=== PATIENT | male | born 1970 | race Caucasian/White ===

== ENCOUNTER 2019-03-10 16:50 | Inpatient (IN) ==
[2019-03-10] MEDS ORDERED: ZOFRAN IV PRN (18:39)
[2019-03-10] MEDS ORDERED: DUONEB (A & A) INH PRN (18:41)
[2019-03-10 18:42] LABS: ALLEN TEST YES; BE -5.4 mmoll (-3.0-3.0); BLOOD TYPE ARTERIAL; HCO3-(ACT) 20.7 mmoll (20.0-26.0); O2(CT) 18.5 mL/dL (15.0-23.0); O2HB 96.2 % (95.0-99.0); PCO2(98.6) 47 mmHg (35-45); PO2(98.6) 135 mmHg (60-100); SAMPLE BLOOD; SAO2 98.9 % (95.0-100.0); THB 13.5 g/dL (11.5-17.4); pH(98.6) 7.27 (7.35-7.45)
[2019-03-10] MEDS ORDERED: QUELICIN ONE (18:42)
[2019-03-10] MEDS ORDERED: DIPRIVAN 1% 1,000 MG/100 ML BOTTLE ONE (18:42)
[2019-03-10] MEDS ORDERED: VERSED ONE ×2 (18:42→19:02)
[2019-03-10 18:44] LABS: MODALITY NRB
[2019-03-10] MEDS ORDERED: SODIUM CHLORIDE 0.9% INJ SCH (18:45)
[2019-03-10] MEDS ORDERED: NS 1,000 ML IV SCH ×2 (18:45→18:52)
[2019-03-10] MEDS ORDERED: VANCOMYCIN IV PER PHARMACY MISC SCH (18:45)
[2019-03-10] MEDS ORDERED: PEPCID IV SCH (18:45)
[2019-03-10] MEDS ORDERED: LEVOPHED 8 MG in D5 1/2 NS 250 ML IV SCH (18:45)
[2019-03-10] MEDS ORDERED: ZOSYN 3.375 GM in NS 50 ML IV SCH (18:45)
[2019-03-10] MEDS ORDERED: ATIVAN ONE (19:12)
[2019-03-10] MEDS ORDERED: QUELICIN IV ONE (19:19)
[2019-03-10] MEDS ORDERED: VERSED IV ONE (19:19)
[2019-03-10] MEDS ORDERED: TYLENOL PR PRN (19:26)
[2019-03-10] MEDS: DUONEB (A & A) INH SCH ×2 (19:30→23:30)
--- NOTE | 2019-03-10 19:31 | HISTORY AND PHYSICAL ---
CHIEF COMPLAINT: Pneumonia, respiratory failure. HISTORY OF PRESENT ILLNESS: This is a 48-year-old gentleman who presented to ICU 15 in transfer from [facility]. On arrival to the ER, the patient was obtunded. He was in respiratory distress. He was initially on BiPAP. He was on BiPAP en route, placed on a non- rebreather. The patient is unable to answer questions at the time of my exam. No family member is present. We are unsure of the past medical history. Dr. Foster did give report stating that the patient had a large left-sided pneumonia. He had been ruled in for sepsis and given fluid boluses as well as antibiotics, although at this time I am unsure what antibiotics he was given. PAST MEDICAL HISTORY: Unknown. PAST SURGICAL HISTORY: Unknown. ALLERGIES: Unknown. HOME MEDICATIONS: Unknown. REVIEW OF SYSTEMS: Unable to obtain. PHYSICAL EXAMINATION: GENERAL: This is a 48-year-old gentleman who is sitting up lying in the bed at present with intubation pending in ICU. VITAL SIGNS: Blood pressure is 99/66, with a heart rate of 110, respirations are 34-36, temperature is 100.9 temporal with O2 sats that initially were 96% on BiPAP. They did deteriorate with non-rebreather. HEENT: Head is normocephalic, atraumatic. Mucous membranes are moist. NECK: Supple. Trachea midline. CARDIOVASCULAR: He is tachycardic. S1 and S2 appreciated. He has clubbing noted to nail beds and bilateral hands. PULMONARY: He has wheezes, rhonchi throughout. Chest rises and falls symmetric with respiration. GASTROINTESTINAL: Soft, nondistended, with bowel sounds in all 4 quadrants. SKIN: Warm and dry. ASSESSMENT AND PLAN: 1. Sepsis. 2. Reported left-sided pneumonia. 3. Respiratory failure. 4. Hypotension. PLAN: The patient will be intubated. We will consult Dr. Farooq for pulmonary management. We will obtain blood cultures, a sputum culture. NG tube and Cabrales catheter will be placed. We will check a urine culture. We will give antibiotic coverage of vancomycin dosed per pharmacy and Zosyn. We will attempt to get in touch with the patient's family members to get any patient history. DuoNeb q.4 hours and q.2 hours p.r.n. and steroids to taper. Diprivan drip. Protonix for PPI. SCDs for DVT prophylaxis as we are unsure of his history. ABG after intubation t be called to pulmonary Post intubation chest x-ray. Repeat a CBC, CMP and magnesium in the morning, along with daily gases CXR in am TSH. We will use restraints as needed for patient's safety. Further treatments pending hospital course. Of note, Dr. Mead was at the bedside with the patient since arrival. Dictated by DANIEL Johnson for Vandana Mead MD cc: DANIEL Johnson MD [facility]
[2019-03-10] MEDS: DIPRIVAN 1% 1,000 MG/100 ML BOTTLE IV SCH ×2 (19:32→23:25)
[2019-03-10] MEDS: SOLU-MEDROL IV SCH (20:31)
[2019-03-10] MEDS: PROTONIX IV SCH (20:32)
[2019-03-10] MEDS: MAXIPIME 1 GM in NS 50 ML IV SCH (20:32)
[2019-03-10] MEDS: ZYVOX 600 MG/D5W 600 MG/300 ML IVPB IV SCH (20:33)
[2019-03-10] MEDS: SODIUM CHLORIDE 0.9% INJ SCH (20:54)
[2019-03-10 21:13] LABS: UR AMPHETAMINES QUAL PRESUMPTIVE POSITIVE (NONE DETECT); UR BARBITUATES QUAL NONE DETECTED (NONE DETECT); UR BENZODIAZEPIN QUAL PRESUMPTIVE POSITIVE (NONE DETECT); UR CANNABINOIDS QUAL NONE DETECTED (NONE DETECT); UR COCAINE QUAL NONE DETECTED (NONE DETECT); UR METHADONE QUAL NONE DETECTED (NONE DETECT); UR OPIATES QUAL NONE DETECTED (NONE DETECT); UR OXYCODONE QUAL NONE DETECTED (NONE DETECT); UR PCP QUAL NONE DETECTED (NONE DETECT)
[2019-03-10 21:22] LABS: BASO# 0.01 X1000 (0.0-0.2); BASO% 0.2 % (0.0-0.8); EOS# 0.03 X1000 (0.0-0.7); EOS% 0.5 % (0.0-10.0); HEMATOCRIT 42.3 % (42.0-52.0); HEMOGLOBIN 14.4 g/dL (14.0-18.0); LYMPH% 23.9 % (20.5-51.1); MCH 29.9 PG (27-31); MCV 87.9 FL (81-99); MONO# 0.18 X1000 (0.11-0.59); MONO% 3.1 % (1.7-9.3); NEUT# 4.25 X1000 (1.4-6.5); NEUT% 72.3 % (42.2-75.2); PLT 190 X1000 (130-400); RBC 4.81 XMIL (4.7-6.1); RDW 13.8 % (11.5-14.5); WBC 5.87 X1000 (4.8-10.8)
[2019-03-10 21:27] LABS: INR 1.27; PROTIME 16.9 Seconds (11.0-16.0)
[2019-03-10] MEDS: NS 1,000 ML IV SCH (21:30)
[2019-03-10 21:48] LABS: AGAP 12; ALB/GLOB RATIO 1.1; ALBUMIN 2.9 g/dL (3.5-5.0); ALKALINE PHOSPHATASE 50 U/L (32-122); BUN 23 mg/dL (8-22); CALCIUM 7.9 mg/dL (8.8-10.2); CHLORIDE 103 mmol/L (98-107); COSMO 272; CREATININE 0.9 mg/dL (0.7-1.2); ESTIMATED GFR > 60; GLUCOSE 106 mg/dL (70-104); GOT 47 U/L (10-34); GPT 24 U/L (10-44); MAGNESIUM 1.3 mg/dL (1.5-2.7); PHOSPHORUS 2.8 mg/dL (2.7-4.5); POTASSIUM 4.8 mmol/L (3.5-5.1); SODIUM 134 mmol/L (136-145); TCO2 19 mmol/L (25-35); TOTAL BILIRUBIN 0.71 mg/dL (0.20-1.00); TOTAL PROTEIN 5.5 g/dL (6.3-8.3)
[2019-03-10 21:49] LABS: BANDS 44 % (0-1); LYMPHS 27 % (21-51); SEGS 5 % (42-75)
[2019-03-10] MEDS ORDERED: MAGNESIUM SULFATE 2 GM/S.W.I. 2 GM/50 ML IVPB IV ONE (21:50)
--- NOTE | 2019-03-10 21:50 | Diag Imaging Result Doc PS360 ---
EXAM: CHEST-PORTABLE INDICATION: ng placement TECHNIQUE: One view COMPARISON: 03/10/2019 FINDINGS: There has been interval placement of NG tube. The tip projects well below the diaphragm and is assumed to be in the lumen of the stomach in expected position. Otherwise, the chest is stable as compared to the recent prior study. IMPRESSION: Interval placement of NG tube in expected position. Electronically signed by Dayne Bush 03/10/2019 9:48 PM
--- NOTE | 2019-03-10 21:59 | Diag Imaging Result Doc PS360 ---
EXAM: CHEST-PORTABLE INDICATION: intubation TECHNIQUE: One view COMPARISON: 01/01/2019 FINDINGS: There is a newly placed ET tube with the tip projecting over the trachea and above the rinku at about the T3 level. There is a very dense consolidation involving the mid and lower lung zone on the left foot complete opacification except for the left lung apex. The right lung is clear. There may be a left pleural fluid collection. The cardiac silhouette is partially obscured by the dense consolidation. The visualized portion is unremarkable. IMPRESSION: 1.Very dense airspace consolidation on the left as described. 2.Interval placement of ET tube as described. Electronically signed by Dayne Bush 03/10/2019 9:56 PM
[2019-03-10 22:02] LABS: ALLEN TEST YES; BE -5.2 mmoll (-3.0-3.0); BLOOD TYPE ARTERIAL; HCO3-(ACT) 20.8 mmoll (20.0-26.0); METHB 1.2 % (0.0-1.5); O2(CT) 18.4 mL/dL (15.0-23.0); O2HB 95.6 % (95.0-99.0); PCO2(98.6) 32 mmHg (35-45); PO2(98.6) 92 mmHg (60-100); SAMPLE BLOOD; SRATE 18 BPM; THB 13.6 g/dL (11.5-17.4); TVOL 500 mL; pH(98.6) 7.38 (7.35-7.45)
[2019-03-10 22:03] LABS: MODALITY VENTILATOR
[2019-03-10] MEDS: HEPARIN SUBQ SCH (22:30)
[2019-03-10 22:34] LABS: CK INDEX 1.6 (0.0-2.5); CK-MB 17.9 ng/mL (0.0-5.0)
[2019-03-11] MEDS: SOLU-MEDROL IV SCH ×3 (02:16→17:00)
[2019-03-11 04:26] LABS: BASO# 0.01 X1000 (0.0-0.2); BASO% 0.1 % (0.0-0.8); EOS# 0.07 X1000 (0.0-0.7); EOS% 0.8 % (0.0-10.0); HEMATOCRIT 41.9 % (42.0-52.0); HEMOGLOBIN 14.1 g/dL (14.0-18.0); IMM GRAN# 0.18 X1000 (0.0-0.04); IMM GRAN% 2.2 % (0.0-0.5); LYMPH# 0.45 X1000 (1.2-3.4); LYMPH% 5.5 % (20.5-51.1); MCH 29.3 PG (27-31); MCHC 33.7 g/dL (33-37); MCV 86.9 FL (81-99); MONO# 0.21 X1000 (0.11-0.59); MONO% 2.5 % (1.7-9.3); MPV 11.2 FL (7.4-10.4); NEUT# 7.33 X1000 (1.4-6.5); NEUT% 88.9 % (42.2-75.2); PLT 180 X1000 (130-400); RBC 4.82 XMIL (4.7-6.1); RDW 13.9 % (11.5-14.5); WBC 8.25 X1000 (4.8-10.8)
[2019-03-11 04:38] LABS: ALLEN TEST YES; BE -2.2 mmoll (-3.0-3.0); BLOOD TYPE ARTERIAL; HCO3-(ACT) 23.2 mmoll (20.0-26.0); METHB 1.1 % (0.0-1.5); O2(CT) 19.4 mL/dL (15.0-23.0); O2HB 97.2 % (95.0-99.0); PCO2(98.6) 32 mmHg (35-45); PO2(98.6) 190 mmHg (60-100); SAMPLE BLOOD; SAO2 99.1 % (95.0-100.0); SRATE 18 BPM; THB 13.9 g/dL (11.5-17.4); TVOL 500 mL; pH(98.6) 7.43 (7.35-7.45)
[2019-03-11 04:40] LABS: MODALITY VENTILATOR
[2019-03-11 04:43] LABS: AGAP 12; ALBUMIN 2.8 g/dL (3.5-5.0); ALKALINE PHOSPHATASE 46 U/L (32-122); BUN 19 mg/dL (8-22); CHLORIDE 104 mmol/L (98-107); COSMO 274; CREATININE 0.9 mg/dL (0.7-1.2); ESTIMATED GFR > 60; GLUCOSE 100 mg/dL (70-104); GOT 42 U/L (10-34); GPT 23 U/L (10-44); POTASSIUM 4.4 mmol/L (3.5-5.1); SODIUM 136 mmol/L (136-145); TCO2 20 mmol/L (25-35); TOTAL BILIRUBIN 0.69 mg/dL (0.20-1.00); TOTAL PROTEIN 5.6 g/dL (6.3-8.3)
[2019-03-11 05:00] LABS: CK INDEX 2.4 (0.0-2.5); CK-MB 13.83 ng/mL (0.0-5.0)
[2019-03-11] MEDS: DIPRIVAN 1% 1,000 MG/100 ML BOTTLE IV SCH ×4 (05:21→21:10)
[2019-03-11] MEDS: ZYVOX 600 MG/D5W 600 MG/300 ML IVPB IV SCH ×2 (06:30→20:00)
[2019-03-11] MEDS: MAXIPIME 1 GM in NS 50 ML IV SCH ×2 (06:30→20:00)
[2019-03-11 06:38] LABS: URINE SOURCE CATH
[2019-03-11 06:41] LABS: BILIRUBIN URINE NEGATIVE (NEGATIVE); BLOOD URINE TRACE (NEGATIVE); COLOR ORANGE; GLUCOSE URINE NEGATIVE (NEGATIVE); KETONE URINE NEGATIVE (NEGATIVE); LEUKOCYTES URINE NEGATIVE (NEGATIVE); NITRITE URINE NEGATIVE (NEGATIVE); PROTEIN URINE 100 mg/dL (NEGATIVE); SP GRAVITY URINE 1.021; TURBIDITY URINE TURBID (CLEAR); UROBILINOGEN URINE NORMAL (NORMAL)
[2019-03-11 06:42] LABS: UR EPITHELIAL CELLS <10 /HPF (<10); URINE BACTERIA NEGATIVE /HPF; URINE RBC <10 /HPF (<10); URINE WBC <10 /HPF (<10)
--- NOTE | 2019-03-11 07:29 | EKG Report ---
Test Performed on : 03/11/2019 06:54:42 AM Test Reason : resp failure Blood Pressure : / mmHG Vent. Rate : 097 BPM Atrial Rate : 097 BPM P-R Int : 128 ms QRS Dur : 092 ms QT Int : 344 ms P-R-T Axes : 071 037 073 degrees QTc Int : 436 ms Normal sinus rhythm. Normal ECG When compared with ECG of 01-JAN-2019 21:02, No significant change was found Confirmed by Kay IRWIN, Boris Perla ([id number]) on 03/11/2019 9:45:21 AM
--- NOTE | 2019-03-11 07:36 | Diag Imaging Result Doc PS360 ---
CHEST-PORTABLE - 03/11/2019 INDICATION: pneumonia, resp failure COMPARISON: 03/10/2019 FINDINGS: Support tubes are stable and in good position. Stable dense opacification of the left lung base most likely infiltrate and effusion. The right lung remains clear. No mediastinal shift. IMPRESSION: Severe opacification of the left lung base similar to prior. Electronically signed by Messi Gutierrez 03/11/2019 7:34 AM
[2019-03-11] MEDS: DUONEB (A & A) INH SCH ×5 (08:02→19:45)
[2019-03-11] MEDS: HEPARIN SUBQ SCH ×2 (08:14→20:00)
[2019-03-11] MEDS: NS 1,000 ML IV SCH ×2 (09:28→23:19)
--- NOTE | 2019-03-11 12:06 | INFECTIOUS DISEASE CONSULT REP ---
DATE: 03/11/2019 CONCLUSION: Unfortunately we do not have much information about the patient. He was seen in [facility] Emergency Room. There he was obtunded and in respiratory distress. Also, he had been in the ER before and complained of abdominal pain. PAST MEDICAL HISTORY, PAST SURGICAL HISTORY, ALLERGIES HOME MEDICATIONS: Are unknown and review of systems was unable to be done. I called the [facility] in the microbiology lab and they said that the patient had blood cultures and thus far they were negative. RECOMMENDATIONS: I agree with treating the patient with Zyvox and cefepime. I have ordered a CT scan of the thorax, abdomen and pelvis. DISCUSSION: As mentioned above. We have very little information on this person. Studies that have been done here show a CBC with a white count of 8250, hemoglobin 14.1, and platelet count 180,000. Liver function studies are normal. Creatinine 0.9. GFR is greater than 60. Blood gases show a pH of 7.43, a PO2 of 190, and a pCO2 of 32. Drug screen was positive for amphetamines and benzodiazepines. Blood, urine and sputum cultures are pending. Chest x-ray showed a left lung opacity. PHYSICAL EXAMINATION: Vital signs: Earlier the patient's temperature was 101 degrees, now it is 100. Pulse is 102. Respirations 21. Blood pressure 99/67. The patient weighs 133 pounds. General: This is an ill-appearing, middle-aged male. He is intubated and sedated. Head/eyes/ears/nose/throat: Patient has an orotracheal tube in place. No drainage noted from the nose or ears. Neck: No meningismus. Lungs: There were diminished breath sounds on the left side. Right side was clear. Cardiovascular: Heart rate is regular. Abdomen: Soft. It did not appear to be tender. Neurologic: The patient is obtunded. He did respond to verbal stimuli. There was no tremor. Integument: No rash. Thank you for the consult. cc: Jacek Brown MD
[2019-03-11 12:46] LABS: CK INDEX 2.5 (0.0-2.5); CK-MB 10.7 ng/mL (0.0-5.0)
--- NOTE | 2019-03-11 14:52 | Diag Imaging Result Doc PS360 ---
EXAM: CT THORAX/ABD/PELVIS W/WO CON 03/11/2019 HISTORY: L lung opacity, abdominal pain, sepsis TECHNIQUE: This exam was performed using automated exposure control, adjustment of mA or kV according to patient size, and/or use of iterative reconstruction technique. COMMENT: There are no previous studies available for comparison. There is an endotracheal tube and an NG tube. The endotracheal tube tip is well above the rinku. The NG tube passes into the stomach. There is marked consolidation of the left lung particularly the lower lobe and lower portions of the upper lobe. There is also a left pleural effusion. There is a smaller effusion on the right with atelectasis in the posterior costophrenic sulcus. There are some patchy groundglass opacities in the right upper lobe anteriorly. The regional skeleton is intact. ABDOMEN: There is no evidence of nephrolithiasis. There is no evidence of cholelithiasis. There is a hyperdense cyst in the left kidney. There is a granuloma in the spleen. The aorta is not distended. The renal and mesenteric arteries are patent. The portal vein is patent. There is some perinephric fluid on the right of uncertain significance. There is normal contrast opacification of the kidneys. The liver is normal in appearance. The pancreas and adrenal glands are within normal limits. There is no evidence of bowel obstruction. There is some stool in the colon. Pelvis: There is no evidence of appendicitis. There is a small amount of free fluid in the rectovesical pouch. There is a Cabrales catheter in the bladder. IMPRESSION: 1. Left pneumonia with pleural effusion. 2. Right perinephric fluid collection of uncertain significance. Minimal free pelvic fluid. Electronically signed by Brice Mauro 03/11/2019 2:50 PM
--- NOTE | 2019-03-11 17:38 | PROGRESS NOTE ---
DATE: 03/11/2019 SUBJECTIVE: The patient is currently sedated on the ventilator. No acute events noted overnight. OBJECTIVE: Vital signs: Temperature 98.6 degrees, blood pressure 101/74, heart rate 103, respirations 20, O2 saturation 99% on the mechanical ventilator. Intake 1.5 L, output 1.6 L.General: This is a middle-aged male, currently sedated on the ventilator. Head normocephalic, atraumatic. Heart: S1, S2 normal. Regular rate and rhythm. Lungs: Coarse breath sounds in the left lung. Abdomen: Positive bowel sounds. Soft, nontender, nondistended. Extremities: No edema, no cyanosis. Neurologic: The patient is currently sedated on the ventilator. LABORATORY DATA: White blood cell count 8.2, hemoglobin 14, hematocrit 41, platelets 180,000. Sodium 136, potassium 4.4, chloride 104, CO2 is 20, BUN 19, creatinine 0.9, glucose 100, calcium 8, phosphorus 2.7, magnesium 2, total bilirubin 0.6, AST 42, ALT 23, alkaline phosphatase 46. CK 430. DIAGNOSTIC DATA: CT of the chest, abdomen and pelvis shows left pneumonia with pleural effusion. Right perinephric fluid collection. ASSESSMENT AND PLAN: 1. Acute hypoxemic respiratory failure. Likely secondary to pneumonia. We will continue with ventilatory support as directed by the calf skinner. Continue with antibiotics and bronchodilator therapy. 2. Left lobe pneumonia. Continue with antibiotic therapy. We will await the results of the blood and sputum culture. We will also consult with Infectious Disease. 3. Polysubstance abuse. Aware. 4. Chronic obstructive pulmonary disease. Continue with intravenous steroids, bronchodilator therapy and antibiotics. 5. Gastrointestinal prophylaxis. Continue on intravenous Protonix. 6. Deep vein thrombosis prophylaxis. Continue on heparin. cc: Vandana Mead MD
--- NOTE | 2019-03-11 18:37 | CONSULTATION ---
DATE OF CONSULTATION: 03/11/2019 REQUESTING PROVIDER: DANIEL Johnson. REASON FOR CONSULTATION: Respiratory failure. HISTORY OF PRESENT ILLNESS: This is a 48-year-old male with a medical history of COPD, ongoing tobacco abuse and liver cirrhosis. He was transferred from [facility] Room last night with left-sided pneumonia. Per the H and P, upon arrival to the ER, the patient was obtunded. He was put on BiPAP and later on a nonrebreather. He eventually required intubation after transferred to the ICU. Patient currently is still intubated and sedated. Patient's ex- is at the bedside. She reported that patient has been coughing for a while. She stated patient has not been seeing any doctor for over 10 years. Patient used an [id number] inhaler as needed. PAST MEDICAL AND SURGICAL HISTORY: Obtained from patient's ex-: 1. COPD, not followed by [facility]; taking OTC inhaler as needed 2. Ongoing tobacco abuse. 2. Liver cirrhosis stage I, diagnosed 10 years ago. SOCIAL HISTORY: Patient is and lives alone at home. Patient's ex- lives 5 minutes away from patient's house. They have 3 children and 8 grandchildren. He smokes 1 pack per day for a long time. He used to drink and has been stopped drinking for a while. He has no history of illicit drug use. FAMILY HISTORY: Mother has cancer and diabetes. Father has congestive heart failure. ALLERGIES: No known drug allergies. REVIEW OF SYSTEMS: Unable to be obtained. PHYSICAL EXAMINATION: Vital Signs: Temperature 99.5 degrees, blood pressure 93/65, pulse 100, respiratory rate 22, oxygen saturation 95% on assist control mechanical ventilator with spontaneous rate 18, FiO2 50%, tidal volume 500, and PEEP 5. General: Chronically ill appearing, intubated and sedated. There is no acute distress noted. HEENT: Atraumatic. Trachea midline. Mucosa pink and slightly dry. ET tube in place. Respiratory: Respirations even and unlabored. Auscultation reveals diminished breathing sounds on the left side and early inspiratory crackles on the left mid and lower lung zones. Cardiovascular: Regular rate and rhythm. Extremities: No pedal edema. No cyanosis. No clubbing. Neurologic: Sedated. Unresponsive to verbal or physical stimuli. LAB DATA: White blood cell 8.25, hemoglobin 14.1, hematocrit 41.9, platelet 180,000. Sodium 136, potassium 4.4, chloride 104, carbon dioxide 20, BUN 19, creatinine 0.9, glucose 100. Troponin 0.113. ABG: PH 7.43, pCO2 of 32, pO2 190, HCO3 23.2, base excess -2.2, oxyhemoglobin 97.2, lactate 2.80. IMAGING DATA: Chest x-ray reveals severe opacification of the left lung base similar to prior. ASSESSMENT: This is a 48-year-old male with medical history of chronic obstructive pulmonary disease with ongoing tobacco abuse and liver cirrhosis stage 1 diagnosed 10 years ago. He was transferred from [facility] Room with left-sided pneumonia. 1. Acute hypoxemic respiratory failure, requiring intubation. 2. Left-sided pneumonia. 3. Shock. 4. COPD with ongoing tobacco abuse. PLAN: 1. Continue assist control mechanical ventilator and we will start weaning trials when appropriate. 2. Continue antibiotics, steroid, and bronchodilators. 3. Follow up with arterial blood gases, CBC, BMP, chest CT scan, blood culture, sputum culture, and urine culture. 4. Will educate patient on the importance and the means of smoking cessation when appropriate. 5. Continue gastrointestinal and deep venous thrombosis prophylaxis. 6. Further recommendations pending hospital course. Thank you for the courtesy of this consult. Dictated by DANIEL Johnson for Mary Farooq MD cc: DANIEL Johnson MD [facility]
[2019-03-11] MEDS: PROTONIX IV SCH (19:57)
[2019-03-11] MEDS: SODIUM CHLORIDE 0.9% INJ SCH (19:58)
[2019-03-12] MEDS: DUONEB (A & A) INH SCH ×7 (00:01→23:20)
[2019-03-12] MEDS: SOLU-MEDROL IV SCH ×3 (01:10→17:01)
[2019-03-12] MEDS: DIPRIVAN 1% 1,000 MG/100 ML BOTTLE IV SCH ×2 (02:36→08:00)
[2019-03-12 05:05] LABS: ALLEN TEST YES; BE -0.3 mmoll (-3.0-3.0); BLOOD TYPE ARTERIAL; HCO3-(ACT) 24.6 mmoll (20.0-26.0); METHB 1.1 % (0.0-1.5); O2(CT) 20.2 mL/dL (15.0-23.0); PCO2(98.6) 38 mmHg (35-45); PO2(98.6) 101 mmHg (60-100); SAMPLE BLOOD; SAO2 98.2 % (95.0-100.0); SRATE 18 BPM; THB 14.9 g/dL (11.5-17.4); TVOL 500 mL; pH(98.6) 7.41 (7.35-7.45)
[2019-03-12 05:06] LABS: MODALITY VENTILATOR
[2019-03-12 05:44] LABS: EOS# 0.01 X1000 (0.0-0.7); EOS% 0.1 % (0.0-10.0); HEMATOCRIT 35.1 % (42.0-52.0); IMM GRAN# 0.07 X1000 (0.0-0.04); IMM GRAN% 0.4 % (0.0-0.5); LYMPH# 0.66 X1000 (1.2-3.4); MCH 29.9 PG (27-31); MCHC 34.2 g/dL (33-37); MCV 87.3 FL (81-99); MONO# 0.57 X1000 (0.11-0.59); MONO% 3.4 % (1.7-9.3); MPV 11.9 FL (7.4-10.4); NEUT# 15.23 X1000 (1.4-6.5); NEUT% 92.1 % (42.2-75.2); PLT 153 X1000 (130-400); RBC 4.02 XMIL (4.7-6.1); WBC 16.54 X1000 (4.8-10.8)
[2019-03-12 06:19] LABS: AGAP 9; BUN 20 mg/dL (8-22); CALCIUM 8.5 mg/dL (8.8-10.2); CHLORIDE 107 mmol/L (98-107); COSMO 279; CREATININE 0.8 mg/dL (0.7-1.2); ESTIMATED GFR > 60; GLUCOSE 107 mg/dL (70-104); POTASSIUM 4.1 mmol/L (3.5-5.1); SODIUM 138 mmol/L (136-145); TCO2 22 mmol/L (25-35)
[2019-03-12 06:53] LABS: BANDS 2 % (0-1); LYMPHS 4 % (21-51); SEGS 94 % (42-75)
[2019-03-12] MEDS: ZYVOX 600 MG/D5W 600 MG/300 ML IVPB IV SCH (07:14)
[2019-03-12] MEDS: MAXIPIME 1 GM in NS 50 ML IV SCH (07:14)
--- NOTE | 2019-03-12 07:18 | Diag Imaging Result Doc PS360 ---
EXAM: CHEST-PORTABLE 03/12/2019 HISTORY: Vent Protocol TECHNIQUE: AP portable at 0524 COMMENT: There is an NG tube coiled in the fundus of the stomach. There is an endotracheal tube with its tip slightly below the thoracic inlet. There is dense alveolar opacification in the lingula and left lower lobe. The inspiration is slightly better than on 03/11/2019 otherwise are has been no significant change. IMPRESSION: Left lower lobe and lingular pneumonia. Electronically signed by Brice Mauro 03/12/2019 7:16 AM
[2019-03-12] MEDS ORDERED: VANCOMYCIN IV PER PHARMACY MISC SCH (08:00)
[2019-03-12] MEDS: HEPARIN SUBQ SCH ×2 (08:00→20:03)
[2019-03-12] MEDS ORDERED: PRECEDEX 200 MICROGM in NS 48 ML IV SCH (08:45)
[2019-03-12] MEDS ORDERED: VANCOMYCIN 1,950 MG in NS 500 ML IV ONE (11:00)
--- NOTE | 2019-03-12 11:10 | INFECTIOUS DISEASE PROGRESS NO ---
DATE: 03/12/2019 PRESENT ILLNESS: The patient has a left lower lobe pneumonia with an effusion. MEDICATIONS: The patient was on a combination of Zyvox and cefepime. I have discontinued both of those antibiotics, and instead have placed the patient on vancomycin. PHYSICAL EXAMINATION: Vital Signs: Temperature earlier was 100 and now it is 98, pulse 97, respirations 18, blood pressure 93/61. General: This is an ill-appearing middle-aged male. HEENT: He has a nasotracheal and nasogastric tube in place. There is no drainage from the ears. His eyelids were closed, but he did partially open them to request. Neck: No meningismus. Lungs: Clear to auscultation. Cardiovascular: Heart rate is regular. Abdomen: Soft and nontender. Neurologic: The patient was partially arousable. He did follow request to move his extremities. He did open his eyes when I asked him to partially. Integument: No rash noted. LAB AND X-RAY STUDIES: I called [facility] where the patient was prior to being admitted to [facility], and the patient's blood cultures there are still negative. Blood cultures here are pending. Sputum is growing a gram-positive coccus. CT scan of the thorax, abdomen and pelvis shows left lower lobe pneumonia with an effusion, and a right perinephric fluid collection. Chest x-ray this morning shows left lower lobe and lingular pneumonia. Blood cultures are pending. ASSESSMENT AND PLAN: Patient has pneumonia with an effusion. I have discontinued Zyvox and cefepime, and instead I started the patient on vancomycin pending identification of the gram- positive coccus in the sputum. The patient does have a leukocytosis, but I think this is due to the fact that he is on high doses of steroids. COMORBIDITIES: Patient's comorbidities: Unfortunately, I do not have any more information about the patient to see if there is a comorbidity. cc: Jacek Brown MD
[2019-03-12] MEDS ORDERED: PRECEDEX IV SCH ×4 (11:45)
[2019-03-12] MEDS ORDERED: NS IV SCH ×4 (11:45)
[2019-03-12 12:29] LABS: ALLEN TEST YES; BE 0.8 mmoll (-3.0-3.0); BLOOD TYPE ARTERIAL; HCO3-(ACT) 25.5 mmoll (20.0-26.0); O2(CT) 14.9 mL/dL (15.0-23.0); O2HB 96.2 % (95.0-99.0); PCO2(98.6) 39 mmHg (35-45); PO2(98.6) 93 mmHg (60-100); SAMPLE BLOOD; SAO2 98.3 % (95.0-100.0); THB 10.9 g/dL (11.5-17.4); pH(98.6) 7.42 (7.35-7.45)
[2019-03-12 12:31] LABS: MODALITY VENTILATOR
[2019-03-12] MEDS: NS 1,000 ML IV SCH (13:07)
[2019-03-12] MEDS: MORPHINE IV PRN ×2 (17:01→21:10)
[2019-03-12] MEDS: SODIUM CHLORIDE 0.9% INJ SCH (20:03)
[2019-03-12] MEDS: PROTONIX IV SCH (20:03)
[2019-03-13] MEDS: SOLU-MEDROL IV SCH ×3 (01:35→17:35)
[2019-03-13] MEDS: NS 1,000 ML IV SCH ×2 (02:06→14:26)
[2019-03-13] MEDS: DUONEB (A & A) INH SCH ×6 (03:16→23:21)
[2019-03-13] MEDS: MORPHINE IV PRN ×3 (03:39→11:16)
--- NOTE | 2019-03-13 03:54 | PROGRESS NOTE ---
DATE: 03/12/2019 SUBJECTIVE: The patient is currently undergoing a weaning trial. OBJECTIVE: Vital Signs: Temperature 98.6 degrees, blood pressure 117/82, heart rate 92, respirations 28, O2 saturations 97% on mechanical ventilator. General: This is a chronically ill- appearing elderly male, lying in bed in no acute distress. Heart: S1, S2, normal. Tachycardic. Lungs: Equal air entry bilaterally. No crackles. No rales. Abdomen: Positive bowel sounds. Soft, nontender, and nondistended. Extremities: No edema, no cyanosis. Neurologic: The patient is awake and able to follow commands. LABS: White blood cell count 16, hemoglobin 12, hematocrit 35, platelets 153,000. Sodium 138, potassium 4.1, chloride 107, CO2 22, BUN 20, creatinine 0.8, glucose 107, calcium 8.5. Chest x-ray: Left lower lobe pneumonia. ASSESSMENT AND PLAN: 1. Acute hypoxemic respiratory failure. The patient is currently undergoing a weaning trial. 2. Left lobe pneumonia. Continue with antibiotics, bronchodilator therapy, and supplemental oxygen. Infectious Disease is following. 3. Polysubstance abuse. Aware. 4. Chronic obstructive pulmonary disease. Continue with steroids, bronchodilator therapy, and antibiotics. 5. Leukocytosis. The patient is on steroid therapy. Continue with antibiotic therapy. 6. Gastrointestinal prophylaxis. Continue on Protonix. 7. Deep vein thrombosis prophylaxis. Continue on heparin. cc: Vandana Mead MD
[2019-03-13 04:34] LABS: ALLEN TEST YES; BE -0.3 mmoll (-3.0-3.0); BLOOD TYPE ARTERIAL; HCO3-(ACT) 24.5 mmoll (20.0-26.0); METHB 0.8 % (0.0-1.5); O2(CT) 15.6 mL/dL (15.0-23.0); PCO2(98.6) 45 mmHg (35-45); PO2(98.6) 58 mmHg (60-100); SAMPLE BLOOD; SAO2 90.9 % (95.0-100.0); THB 12.5 g/dL (11.5-17.4); pH(98.6) 7.36 (7.35-7.45)
[2019-03-13 04:35] LABS: MODALITY VENTIMASK; O2HB 88.6 % (95.0-99.0)
[2019-03-13] MEDS ORDERED: VANCOMYCIN 1,600 MG in NS 250 ML IV SCH (05:00)
[2019-03-13 05:13] LABS: BASO# 0.02 X1000 (0.0-0.2); BASO% 0.1 % (0.0-0.8); HEMOGLOBIN 12.3 g/dL (14.0-18.0); IMM GRAN# 0.16 X1000 (0.0-0.04); IMM GRAN% 0.7 % (0.0-0.5); LYMPH# 0.67 X1000 (1.2-3.4); LYMPH% 2.9 % (20.5-51.1); MCH 29.6 PG (27-31); MCHC 34.2 g/dL (33-37); MCV 86.7 FL (81-99); MONO# 1.25 X1000 (0.11-0.59); MONO% 5.3 % (1.7-9.3); PLT 174 X1000 (130-400); RBC 4.15 XMIL (4.7-6.1); RDW 14.2 % (11.5-14.5)
[2019-03-13 05:40] LABS: AGAP 11; BUN 25 mg/dL (8-22); CALCIUM 8.4 mg/dL (8.8-10.2); CHLORIDE 108 mmol/L (98-107); COSMO 288; CREATININE 0.6 mg/dL (0.7-1.2); ESTIMATED GFR > 60; GLUCOSE 113 mg/dL (70-104); POTASSIUM 3.9 mmol/L (3.5-5.1); SODIUM 142 mmol/L (136-145); TCO2 23 mmol/L (25-35)
[2019-03-13 05:41] LABS: MAGNESIUM 2.4 mg/dL (1.5-2.7); PHOSPHORUS 2.7 mg/dL (2.7-4.5); PREALBUMIN 7.5 mg/dL (20-40)
[2019-03-13] MEDS ORDERED: ROCEPHIN 2 GM in NS 50 ML IV SCH (08:45)
[2019-03-13] MEDS ORDERED: LASIX IV ONE (08:50)
[2019-03-13] MEDS: HEPARIN SUBQ SCH ×2 (09:01→20:24)
--- NOTE | 2019-03-13 09:27 | Diag Imaging Result Doc PS360 ---
EXAM: CHEST-1 VIEW 03/13/2019 HISTORY: SOB TECHNIQUE: AP portable at 0916 COMMENT: There is increasing interstitial and alveolar opacification particularly of the right upper lobe compared to 03/12/2019. There is still dense alveolar opacification of the lingula and left lower lobe. IMPRESSION: Worsening pulmonary edema and/or pneumonia. Electronically signed by Brice Mauro 03/13/2019 9:24 AM
--- NOTE | 2019-03-13 09:38 | PROGRESS NOTE ---
DATE: 03/13/2019 SUBJECTIVE: The patient is a little sleepy this morning. He just received morphine. No acute events noted overnight. He was extubated yesterday. Currently on a Venturi mask. OBJECTIVE: Vital Signs: Temperature 97.3 degrees, blood pressure 122/80, heart rate 100, respirations 22, O2 saturation 94% on Venturi mask. Intake 3.3 L, output 1.4. General: This is a chronically ill-appearing elderly male lying in bed in no acute distress. HEENT: Normocephalic atraumatic. Heart: S1, S2 normal. Regular rate and rhythm. Lungs: Equal air entry bilaterally. No wheezing. No rales. Abdomen: Positive bowel sounds. Soft, nontender, nondistended. Extremities: No edema, no cyanosis. Neurologic: The patient is alert and oriented x4. LABS: White blood cell count 23, hemoglobin 12, hematocrit 36, platelets 174,000. Sodium 142, potassium 3.9, chloride 108, CO2 23, BUN 25, creatinine 0.6, glucose 113, calcium 8.4, magnesium 2.4, phosphorus 2.7. ASSESSMENT AND PLAN: 1. Acute hypoxemic respiratory failure status post extubation. Continue to try and wean down the patient's oxygen. 2. Left lobe pneumonia. The sputum culture is growing gram-positive cocci. The patient has been started on vancomycin. 3. Chronic obstructive pulmonary disease exacerbation. Continue with IV steroids and bronchodilator therapy. 4. Acute pulmonary edema. The patient has received lasix. 5. Tobacco dependence. The patient has been counseled about smoking cessation. 6. Abdominal pain. Continue with p.r.n. pain medication and Protonix. 7. Gastrointestinal prophylaxis. The patient is on IV Protonix. 8. Deep vein thrombosis prophylaxis. Continue on heparin. cc: Vandana Mead MD [facility]
[2019-03-13] MEDS: ROCEPHIN 2 GM in NS 50 ML IV SCH ×2 (10:23→21:42)
[2019-03-13] MEDS: VANCOMYCIN 1,450 MG in NS 250 ML IV SCH (17:33)
--- NOTE | 2019-03-13 18:06 | INFECTIOUS DISEASE PROGRESS NO ---
DATE: 03/13/2019 PRESENT ILLNESS: The patient has a worsening pneumonia. It is bilateral. MEDICATIONS: This is day 1 of the combination of vancomycin and Rocephin. PHYSICAL EXAMINATION: Vital Signs: Temperature is 99 degrees, pulse 108, respirations 28, blood pressure 132/88. General: This is an ill-appearing middle-aged male. He appears to be in no acute distress. Head, eyes, ears, nose and throat: Patient is extubated, no oral white patches, no drainage from the nose or ears. Neck: No meningismus. Lungs: Bilateral rales on auscultation. Cardiovascular: Heart rate is regular. Abdomen: Soft and nontender. Neurologic: The patient is alert, he can move his arms and legs, no tremors. LAB AND X-RAY: Chest x-ray shows worsening of the patient's pulmonary infiltrates. CBC shows a white count of 23,400, hemoglobin 12.3, platelet count 174,000. Blood gases show a pH of 7.36, a PO2 of 58, a pCO2 of 45. Creatinine 0.6. GFR is greater than 60. Blood and urine cultures are negative. Sputum is growing a gram-positive coccus which has been identified as Streptococcus pneumoniae. ASSESSMENT AND PLAN: Patient has pneumonia with an effusion. Most likely, it is due to pneumococcus. The patient's leukocytosis in part may be due to the fact that the patient is on high doses of steroids. For now I plan to continue vancomycin and Rocephin. If the patient's pneumococcus is susceptible to Rocephin then I would discontinue vancomycin. I am also going to order immunoglobulin levels and if the patient's IgG level is very low, then I think he will need IVIG assuming that there is some amount of IgA present. COMORBIDITIES: We do not have any further information about the patient. cc: Jacek Brown MD [facility]
[2019-03-13] MEDS: PROTONIX IV SCH (20:24)
[2019-03-14] MEDS: SOLU-MEDROL IV SCH ×3 (01:03→21:24)
[2019-03-14] MEDS: DUONEB (A & A) INH SCH ×6 (03:35→23:35)
[2019-03-14 04:55] LABS: ALLEN TEST YES; BE 4.1 mmoll (-3.0-3.0); BLOOD TYPE ARTERIAL; HCO3-(ACT) 28.1 mmoll (20.0-26.0); METHB 0.6 % (0.0-1.5); O2(CT) 16.4 mL/dL (15.0-23.0); O2HB 95.1 % (95.0-99.0); PCO2(98.6) 41 mmHg (35-45); PO2(98.6) 77 mmHg (60-100); SAMPLE BLOOD; SAO2 97.2 % (95.0-100.0); SRATE 17 BPM; THB 12.2 g/dL (11.5-17.4); pH(98.6) 7.45 (7.35-7.45)
[2019-03-14 04:57] LABS: MODALITY BI PAP
[2019-03-14] MEDS: VANCOMYCIN 1,450 MG in NS 250 ML IV SCH ×2 (05:46→17:38)
[2019-03-14 06:46] LABS: AGAP 12; BUN 27 mg/dL (8-22); CALCIUM 8.4 mg/dL (8.8-10.2); CHLORIDE 105 mmol/L (98-107); COSMO 290; CREATININE 0.5 mg/dL (0.7-1.2); ESTIMATED GFR > 60; GLUCOSE 125 mg/dL (70-104); POTASSIUM 4.2 mmol/L (3.5-5.1); SODIUM 142 mmol/L (136-145); TCO2 25 mmol/L (25-35)
--- NOTE | 2019-03-14 07:10 | PROVIDER PROGRESS NOTE ---
Progress Note Pulmonary Note: Extubated and tolerated. On PRN Diuresis. Will see PRN. Please reconsult if needed.
--- NOTE | 2019-03-14 07:14 | Diag Imaging Result Doc PS360 ---
EXAM: CHEST-1 VIEW HISTORY: SOB TECHNIQUE: Chest single view COMPARISON: 03/13/2019 FINDINGS: There are dense bilateral infiltrates. These are slightly less pronounced than on the prior study. There is a moderate sized left pleural effusion with basilar atelectasis. IMPRESSION: Mild interval improvement. Electronically signed by Beka Michelle 03/14/2019 7:11 AM
[2019-03-14] MEDS ORDERED: LASIX IV ONE (07:41)
[2019-03-14 07:42] LABS: HEMATOCRIT 36.4 % (42.0-52.0); HEMOGLOBIN 12.3 g/dL (14.0-18.0); MCH 29.7 PG (27-31); MCHC 33.8 g/dL (33-37); MCV 87.9 FL (81-99); MPV 12.2 FL (7.4-10.4); RBC 4.14 XMIL (4.7-6.1); RDW 14.3 % (11.5-14.5); WBC 21.15 X1000 (4.8-10.8)
[2019-03-14] MEDS: HEPARIN SUBQ SCH ×2 (09:19→21:24)
[2019-03-14] MEDS: ROCEPHIN 2 GM in NS 50 ML IV SCH ×2 (09:19→21:25)
[2019-03-14] MEDS: LASIX IV SCH (09:19)
--- NOTE | 2019-03-14 12:12 | PROGRESS NOTE ---
DATE: 03/14/2019 SUBJECTIVE: The patient is resting comfortably in bed. He has no complaints at this time. He remains on a Venturi mask. OBJECTIVE: Vital Signs: Temperature 98.9 degrees, blood pressure 131/95, heart rate 96, respirations 18, O2 saturation 90% on a Venturi mask, intake 2.5 L, output 3.9 L. General: This is a chronically ill-appearing elderly male lying in bed in no acute distress. Heart: S1, S2 normal. Regular rate and rhythm. Lungs: Coarse breath sounds bilaterally. Abdomen: Positive bowel sounds. Soft, nontender, nondistended. Extremities: No edema. No cyanosis. Neurologic: The patient is alert and oriented x3. LABORATORY DATA: White blood cell count 21, hemoglobin 12, hematocrit 36, platelets 161,000. Sodium 142, potassium 4.2, chloride 105, CO2 25, BUN 27, creatinine 0.5, glucose 125, calcium 8.4. ASSESSMENT AND PLAN: 1. Acute hypoxemic respiratory failure status post extubation. Continue to try and wean down the patient's supplemental oxygen. 2. Acute pulmonary edema. We will continue with diuretic therapy. We will also check an echocardiogram. 3. Left lower lobe pneumonia. Continue with antibiotic therapy. 4. Chronic obstructive pulmonary disease. We will wean down the IV steroids. Continue with bronchodilator therapy. 5. Tobacco dependence. The patient has been counseled about smoking cessation. 6. Gastrointestinal prophylaxis. Continue on IV Protonix. 7. Deep vein thrombosis prophylaxis. Continue on heparin. cc: Vandana Mead MD MTDD
[2019-03-14] MEDS: MORPHINE IV PRN ×2 (14:04→21:24)
--- NOTE | 2019-03-14 16:36 | ECHO REPORT ---
ORDER DATE: 03/14/2019 FINDINGS: 1. The right atrium appears normal in size at 3.3 cm. 2. Mild tricuspid regurgitation. RV systolic pressure of 61 suggesting pulmonary hypertension. 3. Normal RV size and systolic function. 4. Mild pulmonic insufficiency. 5. Suggestion of moderate left atrial enlargement with a volume index of 37. 6. No mitral valve prolapse. Mild mitral regurgitation. There is thickening of the mitral leaflets with restriction in motion consistent with moderate mitral stenosis. Peak gradient across valve is 21 with a mean of 9.8 mmHg. Mild mitral regurgitation. 7. Normal LV size, end-diastolic dimension of 4.7. Normal wall thicknesses with a posterior and interventricular septal wall thickness of 0.8 and 0.7 cm respectively. Normal LV systolic function. Estimated EF is 60%. Normal wall motion. 8. Aortic valve opens well. It is trileaflet. No evidence of stenosis or insufficiency. 9. Aorta appears normal in visualized segments. 10. There is no pericardial effusion. Suggestion of pleural effusion. cc: MD Vandana Mann MD
[2019-03-14] MEDS: PROTONIX IV SCH (21:24)
[2019-03-15] MEDS: DUONEB (A & A) INH SCH ×5 (03:21→19:36)
[2019-03-15 04:40] LABS: BLOOD TYPE ARTERIAL; SAMPLE BLOOD
[2019-03-15 04:41] LABS: ALLEN TEST YES; BE 7.3 mmoll (-3.0-3.0); HCO3-(ACT) 30.6 mmoll (20.0-26.0); METHB 0.5 % (0.0-1.5); O2(CT) 15.5 mL/dL (15.0-23.0); O2HB 94.7 % (95.0-99.0); PCO2(98.6) 45 mmHg (35-45); PO2(98.6) 75 mmHg (60-100); SAO2 97.9 % (95.0-100.0); THB 11.6 g/dL (11.5-17.4); pH(98.6) 7.46 (7.35-7.45)
[2019-03-15 04:41] LABS: BASO# 0.04 X1000 (0.0-0.2); BASO% 0.2 % (0.0-0.8); EOS# 0.01 X1000 (0.0-0.7); EOS% 0.1 % (0.0-10.0); HEMATOCRIT 36.3 % (42.0-52.0); HEMOGLOBIN 12.4 g/dL (14.0-18.0); IMM GRAN# 1.46 X1000 (0.0-0.04); IMM GRAN% 7.5 % (0.0-0.5); LYMPH# 0.93 X1000 (1.2-3.4); LYMPH% 4.8 % (20.5-51.1); MCH 29.1 PG (27-31); MCHC 34.2 g/dL (33-37); MCV 85.2 FL (81-99); MONO# 1.83 X1000 (0.11-0.59); MONO% 9.4 % (1.7-9.3); MPV 11.4 FL (7.4-10.4); NEUT# 15.15 X1000 (1.4-6.5); PLT 170 X1000 (130-400); RBC 4.26 XMIL (4.7-6.1); WBC 19.42 X1000 (4.8-10.8)
[2019-03-15 04:42] LABS: MODALITY VENTIMASK
[2019-03-15 04:57] LABS: AGAP 10; BUN 21 mg/dL (8-22); CALCIUM 8.2 mg/dL (8.8-10.2); CHLORIDE 101 mmol/L (98-107); COSMO 285; CREATININE 0.5 mg/dL (0.7-1.2); ESTIMATED GFR > 60; GLUCOSE 139 mg/dL (70-104); POTASSIUM 4.1 mmol/L (3.5-5.1); SODIUM 140 mmol/L (136-145); TCO2 29 mmol/L (25-35)
[2019-03-15] MEDS: SOLU-MEDROL IV SCH ×3 (06:01→21:00)
[2019-03-15] MEDS: MORPHINE IV PRN ×3 (06:01→23:11)
--- NOTE | 2019-03-15 07:57 | Diag Imaging Result Doc PS360 ---
EXAM: CHEST-1 VIEW - 03/15/2019 HISTORY: SOB TECHNIQUE: Portable chest COMPARISON: 03/14/2019 FINDINGS: There are relatively diffuse bilateral infiltrates which appear stable to mildly decreased from prior. There is a moderate left pleural effusion which appears stable. There is no pneumothorax identified. IMPRESSION: Stable to mildly decreased bilateral infiltrates. Stable left pleural effusion. Electronically signed by Monty Knowles 03/15/2019 7:55 AM
[2019-03-15] MEDS ORDERED: VANCOMYCIN 1,600 MG in NS 250 ML IV SCH (09:00)
[2019-03-15] MEDS ORDERED: LACTULOSE PO SCH (09:00)
[2019-03-15] MEDS ORDERED: MIRALAX PO SCH (09:00)
[2019-03-15] MEDS: HEPARIN SUBQ SCH ×2 (09:24→20:47)
[2019-03-15] MEDS: LASIX IV SCH (09:24)
[2019-03-15] MEDS: ROCEPHIN 2 GM in NS 50 ML IV SCH ×2 (09:24→21:00)
[2019-03-15] MEDS: PROTONIX IV SCH (20:47)
[2019-03-15] MEDS ORDERED: DULCOLAX PR SCH (21:00)
[2019-03-16] MEDS: DUONEB (A & A) INH SCH ×7 (04:10→23:19)
--- NOTE | 2019-03-16 04:20 | PROGRESS NOTE ---
DATE: 03/15/2019 SUBJECTIVE: The patient is resting comfortably in bed. He is sitting up getting ready to eat breakfast. OBJECTIVE: Vital Signs: Temperature 98.6 degrees, blood pressure 136/91, heart rate 84, respirations 20, O2 saturation 94% on a Venturi mask. General: This is an elderly male lying in bed in no acute distress. Heart: S1, S2 normal. Regular rate and rhythm. Lungs: Equal air entry bilaterally. No crackles, no rales. Abdomen: Positive bowel sounds. Soft, nontender, nondistended. Extremities: No edema, no cyanosis. Neurologic: The patient is alert and oriented x4. LABS: White blood cell count 19, hemoglobin 12, hematocrit 36, platelets 170,000. Sodium 140, potassium 4.1, chloride 101, CO2 29, BUN 21, creatinine 0.5, glucose 139, calcium 8.2. ASSESSMENT AND PLAN: 1. Acute hypoxemic respiratory failure status post extubation. The patient is currently on a Venturi mask. Continue with antibiotics and diuretic therapy. 2. Acute pulmonary edema. Slowly improving. Continue with Lasix. 3. Moderate left pleural effusion. Continue to monitor for improvement. The patient is currently on diuretic therapy. 4. Pneumonia secondary to Streptococcus pneumoniae. Continue with antibiotic therapy as directed by Dr. Brown. 5. Chronic obstructive pulmonary disease. Will continue to wean the steroid therapy. Continue with bronchodilator therapy. 6. Pulmonary hypertension. Aware. 7. Constipation. Will start the patient on scheduled laxative therapy. 8. Gastrointestinal prophylaxis. Continue on Protonix. 9. Deep vein thrombosis prophylaxis. Continue on heparin. cc: Vandana Mead MD
[2019-03-16 04:53] LABS: ALLEN TEST YES; BE 7.7 mmoll (-3.0-3.0); BLOOD TYPE ARTERIAL; HCO3-(ACT) 30.9 mmoll (20.0-26.0); METHB 1.2 % (0.0-1.5); MODALITY VENTIMASK; O2(CT) 18.8 mL/dL (15.0-23.0); O2HB 96.1 % (95.0-99.0); PCO2(98.6) 46 mmHg (35-45); PO2(98.6) 121 mmHg (60-100); SAMPLE BLOOD; SAO2 98.5 % (95.0-100.0); THB 13.8 g/dL (11.5-17.4); pH(98.6) 7.46 (7.35-7.45)
[2019-03-16] MEDS: SOLU-MEDROL IV SCH ×2 (05:10→14:00)
[2019-03-16 05:55] LABS: BASO# 0.12 X1000 (0.0-0.2); BASO% 0.7 % (0.0-0.8); HEMATOCRIT 38.8 % (42.0-52.0); HEMOGLOBIN 13.3 g/dL (14.0-18.0); IMM GRAN% 9.1 % (0.0-0.5); LYMPH# 1.25 X1000 (1.2-3.4); LYMPH% 7.1 % (20.5-51.1); MCHC 34.3 g/dL (33-37); MCV 84.7 FL (81-99); MONO% 6.8 % (1.7-9.3); MPV 11.5 FL (7.4-10.4); NEUT# 13.36 X1000 (1.4-6.5); NEUT% 76.3 % (42.2-75.2); PLT 191 X1000 (130-400); RBC 4.58 XMIL (4.7-6.1); RDW 13.9 % (11.5-14.5); WBC 17.53 X1000 (4.8-10.8)
[2019-03-16 06:08] LABS: AGAP 10; BUN 18 mg/dL (8-22); CALCIUM 8.6 mg/dL (8.8-10.2); CHLORIDE 97 mmol/L (98-107); COSMO 277; CREATININE 0.5 mg/dL (0.7-1.2); ESTIMATED GFR > 60; GLUCOSE 130 mg/dL (70-104); POTASSIUM 3.9 mmol/L (3.5-5.1); SODIUM 137 mmol/L (136-145); TCO2 30 mmol/L (25-35)
--- NOTE | 2019-03-16 06:38 | Diag Imaging Result Doc PS360 ---
EXAM: CHEST-1 VIEW HISTORY: SOB TECHNIQUE: Portable chest single view COMPARISON: 03/15/2019 FINDINGS: There are increased interstitial markings throughout both lungs. These are similar to the prior exam. No change in the small to moderate-sized left pleural effusion and left basilar atelectasis. The overall appearance is similar to the prior exam. IMPRESSION: Stable chest. Electronically signed by Beka Michelle 03/16/2019 6:35 AM
[2019-03-16 06:50] LABS: BANDS 3 % (0-1); LYMPHS 11 % (21-51); MONO 3 % (1-9); SEGS 83 % (42-75)
[2019-03-16] MEDS: HEPARIN SUBQ SCH ×2 (08:55→20:27)
[2019-03-16] MEDS: ROCEPHIN 2 GM in NS 50 ML IV SCH ×3 (08:55→22:02)
[2019-03-16] MEDS: LASIX IV SCH (08:56)
[2019-03-16] MEDS: PROTONIX IV SCH (20:27)
[2019-03-16] MEDS: COLACE PO SCH (20:28)
[2019-03-17] MEDS: MORPHINE IV PRN ×4 (03:02→14:25)
[2019-03-17] MEDS: DUONEB (A & A) INH SCH ×6 (03:18→23:10)
[2019-03-17 04:33] LABS: ALLEN TEST YES; BE 6.6 mmoll (-3.0-3.0); BLOOD TYPE ARTERIAL; METHB 0.8 % (0.0-1.5); O2(CT) 20.7 mL/dL (15.0-23.0); O2HB 94.6 % (95.0-99.0); PCO2(98.6) 40 mmHg (35-45); PO2(98.6) 72 mmHg (60-100); SAMPLE BLOOD; SAO2 96.6 % (95.0-100.0); THB 15.6 g/dL (11.5-17.4); pH(98.6) 7.49 (7.35-7.45)
[2019-03-17 04:39] LABS: MODALITY CANNULA
[2019-03-17 05:50] LABS: RBC 5.22 XMIL (4.7-6.1); WBC 23.05 X1000 (4.8-10.8)
[2019-03-17 05:51] LABS: BASO# 0.21 X1000 (0.0-0.2); BASO% 0.9 % (0.0-0.8); EOS# 0.08 X1000 (0.0-0.7); EOS% 0.3 % (0.0-10.0); HEMATOCRIT 43.8 % (42.0-52.0); IMM GRAN% 12.1 % (0.0-0.5); LYMPH% 15.2 % (20.5-51.1); MCH 28.7 PG (27-31); MCHC 34.2 g/dL (33-37); MCV 83.9 FL (81-99); MONO# 1.41 X1000 (0.11-0.59); MONO% 6.1 % (1.7-9.3); MPV 11.7 FL (7.4-10.4); NEUT# 15.05 X1000 (1.4-6.5); NEUT% 65.4 % (42.2-75.2); PLT 229 X1000 (130-400); RDW 13.8 % (11.5-14.5)
[2019-03-17 06:08] LABS: CREATININE 0.6 mg/dL (0.7-1.2); ESTIMATED GFR > 60; GLUCOSE 104 mg/dL (70-104); TCO2 22 mmol/L (25-35)
[2019-03-17 06:46] LABS: BANDS 2 % (0-1); EOS 1 % (1-10); LYMPHS 19 % (21-51); SEGS 76 % (42-75)
[2019-03-17 06:55] LABS: AGAP 17; BUN 18 mg/dL (8-22); CALCIUM 8.9 mg/dL (8.8-10.2); CHLORIDE 96 mmol/L (98-107); COSMO 272; POTASSIUM 3.9 mmol/L (3.5-5.1); SODIUM 135 mmol/L (136-145)
--- NOTE | 2019-03-17 07:49 | Diag Imaging Result Doc PS360 ---
EXAM: CHEST-1 VIEW INDICATION: SOB TECHNIQUE: One view COMPARISON: 03/16/2019 FINDINGS: The interstitial infiltrate throughout the right lung has improved. On the left that is stable. The left pleural effusion is unchanged. No new consolidation is identified. Cardiac silhouette is stable. IMPRESSION: Interval improvement on the right. Electronically signed by Dayne Bush 03/17/2019 7:47 AM
[2019-03-17] MEDS: ROCEPHIN 2 GM in NS 50 ML IV SCH ×2 (09:14→22:03)
[2019-03-17] MEDS: COLACE PO SCH ×2 (09:14→22:04)
[2019-03-17] MEDS: HEPARIN SUBQ SCH ×2 (09:15→22:03)
[2019-03-17] MEDS: LASIX IV SCH (09:15)
[2019-03-17] MEDS: SOLU-MEDROL IV SCH ×2 (09:16→22:03)
--- NOTE | 2019-03-17 11:57 | PROGRESS NOTE ---
DATE: 03/17/2019 SUBJECTIVE: Mr. Jackson has no Primary Care Physician. He presented on 03/10/2019. A 48-year-old presented to the ICU from the Emergency Room in [facility] emergency room. On arrival, the patient was obtunded. He was in respiratory distress and initially on BiPAP. He was on BiPAP en route and placed on nonrebreather. The patient unable to answer questions at the time. Family member present. Unsure of past medical history at that time. Dr. Foster gave a report stating the patient had left sided pneumonia, had been ruled out for sepsis. He was given fluid boluses as well as antibiotics. PAST MEDICAL HISTORY: Unknown PAST SURGICAL HISTORY: Unknown. OBJECTIVE: Today, he is breathing comfortably on nasal cannula down to 3 L and appears comfortable. Temperature 98.7, pulse 105, respirations 31, and blood pressure 110/69. Pupils are equal and round. Lungs are clear in all lung warren. Cardiovascular exam with regular rhythm and rate without murmur or S3. Abdomen is soft. Skin is warm and dry. Urine output is a little over 8 L. DIAGNOSTIC: Chest x-ray from this morning, interval improvement on the right. Interstitial infiltrate throughout the right lung has improved. On the left, stable. Left pleural effusion unchanged. ASSESSMENT AND PLAN: 1. Acute hypoxemic respiratory failure status post extubation. Patient is currently on nasal cannula so we have been able to wean him down. 2. Acute pulmonary edema slowly improving. Continue Lasix. 3. Moderate left pleural effusion. Continues to show improvement with diuretic therapy. 4. Streptococcus Pneumonia. Continue antibiotic per Dr. Brown. 5. COPD. Continue to wean the steroid therapy. Continue bronchodilator therapy. 6. Pulmonary hypertension. 7. Constipation. 8. GI prophylaxis on Protonix. 9. Deep venous thrombosis prophylaxis. Continue heparin. REVIEW OF ORDERS: 1. Heparin 5000 units subc q.12 h. 2. Colace 100 mg b.i.d. 3. Methylprednisone 40 mg. IV q.12 h. 4. Protonix 40 mg IV q.12. 5. Ceftriaxone 2 grams IV q.12. I think he can move to the floor. We will switch his Protonix to p.o. cc: Boris Villanueva MD
--- NOTE | 2019-03-17 12:22 | Diag Imaging Result Doc PS360 ---
EXAM: ABDOMEN FLAT/UPRIGHT INDICATION: abdominal pain TECHNIQUE: 2 views COMPARISON: None. FINDINGS: There is abundant stool throughout the colon and rectum suggesting moderate to severe constipation. There is no obstructive bowel pattern. There is no evidence of large volume free abdominal gas. There is no evidence of organomegaly. IMPRESSION: Suggestion of moderate to severe constipation. Electronically signed by Dayne Bush 03/17/2019 12:20 PM
[2019-03-17] MEDS: MYCOSTATIN SUSP PO SCH ×3 (14:32→22:04)
[2019-03-17 16:28] LABS: AMYLASE 140 U/L (20-200); LIPASE 201 U/L (13-60)
[2019-03-17] MEDS ORDERED: TORADOL IV ONE (17:27)
[2019-03-18] MEDS: B & O 15A SUPP PR PRN ×2 (01:44→15:10)
[2019-03-18] MEDS: DUONEB (A & A) INH SCH ×6 (03:00→23:10)
[2019-03-18] MEDS: MORPHINE IV PRN (03:05)
[2019-03-18 04:57] LABS: ALLEN TEST YES; BE 7.3 mmoll (-3.0-3.0); BLOOD TYPE ARTERIAL; HCO3-(ACT) 30.5 mmoll (20.0-26.0); METHB 1.3 % (0.0-1.5); O2(CT) 20.2 mL/dL (15.0-23.0); O2HB 92.2 % (95.0-99.0); PCO2(98.6) 40 mmHg (35-45); PO2(98.6) 66 mmHg (60-100); SAMPLE BLOOD; SAO2 95.2 % (95.0-100.0); THB 15.6 g/dL (11.5-17.4)
[2019-03-18 04:58] LABS: MODALITY CANNULA
[2019-03-18 06:23] LABS: BASO% 0.2 % (0.0-0.8); HEMATOCRIT 44.1 % (42.0-52.0); HEMOGLOBIN 15.4 g/dL (14.0-18.0); IMM GRAN# 1.91 X1000 (0.0-0.04); LYMPH# 2.26 X1000 (1.2-3.4); LYMPH% 3.5 % (20.5-51.1); MCH 28.8 PG (27-31); MCHC 34.9 g/dL (33-37); MCV 82.6 FL (81-99); MONO% 2.7 % (1.7-9.3); MPV 11.6 FL (7.4-10.4); NEUT# 57.85 X1000 (1.4-6.5); NEUT% 90.6 % (42.2-75.2); PLT 253 X1000 (130-400); RBC 5.34 XMIL (4.7-6.1); RDW 14.2 % (11.5-14.5); WBC 63.82 X1000 (4.8-10.8)
--- NOTE | 2019-03-18 06:49 | Diag Imaging Result Doc PS360 ---
CHEST-1 VIEW - 03/18/2019 INDICATION: SOB COMPARISON: 03/17/2019 FINDINGS: Lung volumes are lower. There is worsening diffuse interstitial infiltrate throughout the left lung. There is also slight worsening in hazy interstitial infiltrate throughout the right lung. This may represent any combination of pneumonia and/or pulmonary edema. There is cardiomegaly. There is probably a small left pleural effusion. IMPRESSION: Worsening from prior. Electronically signed by Messi Gutierrez 03/18/2019 6:47 AM
[2019-03-18 07:23] LABS: BANDS 1 % (0-1); LYMPHS 4 % (21-51); MONO 3 % (1-9); SEGS 90 % (42-75)
[2019-03-18] MEDS: SOLU-MEDROL IV SCH ×2 (09:50→22:50)
[2019-03-18] MEDS: HEPARIN SUBQ SCH ×2 (09:50→22:50)
[2019-03-18] MEDS: COLACE PO SCH ×2 (09:50→22:50)
[2019-03-18] MEDS: MYCOSTATIN SUSP PO SCH ×4 (09:50→22:50)
[2019-03-18] MEDS: LASIX IV SCH (09:50)
[2019-03-18] MEDS: ROCEPHIN 2 GM in NS 50 ML IV SCH (10:48)
--- NOTE | 2019-03-18 11:55 | PROGRESS NOTE ---
DATE: 03/16/2019 SUBJECTIVE: The patient is resting comfortably in bed. He is on a Venturi mask. OBJECTIVE: Vital Signs: Temperature 99 degrees, blood pressure 113/65, heart rate 101, respirations 18, O2 saturation is 95% on a Venturi mask. Intake and Output: Intake 2.1 L. Output 4.3 L. General: This is a chronically ill-appearing elderly male, lying in bed in no acute distress. Heart: S1, S2 normal, tachycardic. Lungs: Equal air entry bilaterally. No wheezing. No rales. No rhonchi. Abdomen: Positive bowel sounds. Soft, nontender, nondistended. Extremities: No edema, no cyanosis. Neurologic: The patient is alert and oriented x4. DIAGNOSTIC STUDIES: White blood cell count 17, hemoglobin 13, hematocrit 38 platelets 191,000. Sodium 137, potassium 3.9, chloride 97, CO2 of 30, BUN 18, creatinine 0.5, glucose 130. Chest x-ray shows a small to moderate size left pleural effusion. ASSESSMENT AND PLAN: 1. Acute hypoxemic respiratory failure status post extubation. 2. Acute pulmonary edema. Continue with diuretic therapy. 3. Moderate left pleural effusion. Continue to monitor closely for improvement. 4. Pneumonia secondary to Streptococcus pneumoniae. Continue with antibiotic therapy as directed by Dr. Brown. 5. Pulmonary hypertension. Aware. 6. Chronic obstructive pulmonary disease. Continue with bronchodilator therapy, steroids, and supplemental oxygen. 7. Gastrointestinal prophylaxis. Continue on Protonix. 8. Deep vein thrombosis prophylaxis. Continue on heparin. cc: Vandana Mead MD
[2019-03-18] MEDS ORDERED: VANCOMYCIN IV PER PHARMACY MISC SCH (13:45)
--- NOTE | 2019-03-18 14:17 | PROGRESS NOTE ---
DATE: 03/18/2019 SUBJECTIVE: He is breathing better. Feels better, comfortable. He was sleeping when I came in. Easy to arouse. Remains afebrile. OBJECTIVE: Temperature 99.5 degrees, pulse 117, respirations 18, blood pressure 117/65. Pupils are equal and round. Lungs are clear in all lung warren. Cardiovascular Examination: Regular rhythm and rate without murmur or S3. Abdomen is soft. Skin is warm and dry. Did not have to use the BiPAP last night. His urine output was 2400 mL. Chest x-ray from this morning, lung volumes are lower, worsening diffuse interstitial infiltrate throughout the left lung. Slight worsening of hazy interstitial infiltrate. Clinically, though, he is breathing better. His abdominal x-ray suggested moderate severe constipation. ASSESSMENT AND PLAN: 1. Acute hypoxemic respiratory failure, status post extubation. Currently, clinically doing better. We will continue to wean his oxygen. He is not having to use the BiPAP. I want to get him up with physical therapy and start walking around. I have had long talks about the importance of staying off of heavy sedation including pain medicine. 2. Acute pulmonary edema, slowly improving. 3. Moderate left pleural effusion. Continue diuretic therapy. 4. Streptococcus pneumonia. Continue present antibiotics. 5. Chronic obstructive pulmonary disease. He is on steroid treatment. Continue bronchodilator therapy. 6. Pulmonary hypertension. 7. Hypertension. 8. Gastrointestinal prophylaxis, on Protonix. 9. Continue deep venous thrombosis prophylaxis. 10. I want to stop his morphine. I want to see if we can wean him down off his oxygen. Radiographically, he has not shown much improvement but clinically, he looks much better. We will continue methylprednisone at 40 mg intravenous every 12 hours. cc: Boris Villanueva MD
[2019-03-18] MEDS: MERREM 1 GM in NS 50 ML IV SCH ×2 (14:54→22:49)
[2019-03-18] MEDS: VANCOMYCIN 1,600 MG in NS 250 ML IV SCH (15:30)
--- NOTE | 2019-03-18 16:43 | INFECTIOUS DISEASE PROGRESS NO ---
DATE: 03/16/2019 PRESENT ILLNESS: Mr. Jackson is being treated for pneumococcal pneumonia with a moderate, left pleural effusion. MEDICATIONS: He is receiving Rocephin 2 gram IV every 12 hours. He is also receiving IV Solu- Medrol. PHYSICAL EXAMINATION: Vital signs: Temperature is 98.9 degrees, pulse rate 103, respiratory rate 20, blood pressure 116/70, O2 saturation is 94% on 4 liters nasal cannula. General: This is a chronically ill appearing, middle aged gentleman. He is sitting up in the chair currently in no acute distress. HEENT: Atraumatic, normocephalic. Oral mucous membranes are pink and moist. Conjunctiva are pale. Neck: Supple. Trachea midline. Cardiovascular: Heart rate and rhythm are regular and tachycardic. Sinus tach on the monitor. Respiratory: Lung sounds are generally diminished bilaterally with clear lung sounds noted to the right lower lobe. No work of breathing is noted. Abdomen: Soft, flat, nontender. Bowel sounds are active. Neurologic: He is alert, awake, oriented, able to move all of his extremities independently. No tremor is noted. LABORATORY AND X-RAY: Today his white count is 17.53, hemoglobin 13.3, platelet count 191,000. His blood gas this morning on a 50% Ventimask showed a pH of 7.46, pCO2 46, pO2 121, HCo 330.9. Creatinine 0.5, estimated GFR is greater than 60. His sputum previously grew a streptococcus pneumoniae. Chest x-ray today shows stable interstitial markings throughout both lungs with a moderate sized left pleural effusion and left basilar atelectasis. Patient's immunoglobulin level show an IgA of 142 and IgG of 713. ASSESSMENT/PLAN: Mr. Jackson is being treated for pneumococcal pneumonia with a moderate left side pleural effusion. There is a leukocytosis, however, he is receiving IV steroids. He seems to be doing better today and his oxygen has been decreased to 4 liters nasal cannula. For now we will continue the Rocephin as ordered. These plans have been discussed with and recommended by Dr. Brown. COMORBIDITIES: Cigarette smoking and chronic obstructive pulmonary disease. Dictated by DANIEL Cordero for Jacek Brown MD cc: Jacek Brown MD [facility]
--- NOTE | 2019-03-18 20:51 | INFECTIOUS DISEASE PROGRESS NO ---
DATE: 03/18/2019 PRESENT ILLNESS: The patient is being treated for pneumococcal pneumonia. Unfortunately, today the patient's white count got up to 53,000 and his chest x-ray shows worsening of bilateral infiltrates. The patient also has oral candidiasis. MEDICATIONS: The patient is on his 5th day of Rocephin. He also is taking steroids. The patient is on nystatin to treat his oral candidiasis. PHYSICAL EXAMINATION: Vital Signs: Temperature is 99 degrees, pulse 110, respirations 18, blood pressure 125/78. General: This is an ill appearing, middle-aged male. He is in no acute distress. Head, Eyes, Ears, Nose, Throat: He can hear my spoken words and see near objects. He has a white coating on his tongue. His sinuses are not tender. Neck: There is no neck pain with movement of his head or the neck. Lungs: There were diminished breath sounds on the left side. The right side was clear. Cardiovascular: Heart rate is regular. Abdomen: Seems somewhat protuberant. Bowel sounds were present, however. Neurologic: The patient is awake. He can move his extremities. There is no tremor. LAB AND X-RAY: The patient's CBC shows a white count of 63,820, hemoglobin 15.4, platelet count 253,000. Blood gases show a pH of 7.5, a pO2 of 66, and a pCO2 of 40. Creatinine is 0.6. GFR is greater than 60. Chest x-ray shows worsening of the bilateral infiltrates. The patient's x-ray of the abdomen shows moderate to severe constipation. ASSESSMENT AND PLAN: The patient has bilateral pulmonary infiltrates which are worsening, and an increasing white count. My plan is to get 2 blood cultures and a sputum culture, discontinue Rocephin, and place the patient on a combination of vancomycin and meropenem. I am going to get blood culture and sputum culture. I plan to continue nystatin for the patient's oral candidiasis. COMORBIDITIES: I do not know of any definite comorbidities in this patient. cc: Jacek Brown MD
[2019-03-19] MEDS: VANCOMYCIN 1,600 MG in NS 250 ML IV SCH ×2 (03:14→15:59)
[2019-03-19] MEDS: DUONEB (A & A) INH SCH ×6 (03:15→23:15)
[2019-03-19 05:08] LABS: ALLEN TEST YES; BE 1.6 mmoll (-3.0-3.0); BLOOD TYPE ARTERIAL; HCO3-(ACT) 26.2 mmoll (20.0-26.0); METHB 0.9 % (0.0-1.5); O2(CT) 19.6 mL/dL (15.0-23.0); O2HB 96.7 % (95.0-99.0); PCO2(98.6) 33 mmHg (35-45); PO2(98.6) 130 mmHg (60-100); SAMPLE BLOOD; SAO2 98.8 % (95.0-100.0); THB 14.3 g/dL (11.5-17.4); pH(98.6) 7.48 (7.35-7.45)
[2019-03-19] MEDS: MERREM 1 GM in NS 50 ML IV SCH ×3 (05:14→21:58)
[2019-03-19 05:21] LABS: MODALITY CANNULA
--- NOTE | 2019-03-19 07:46 | Diag Imaging Result Doc PS360 ---
EXAM: CHEST-2 VIEWS HISTORY: pneumonia TECHNIQUE: Chest two views COMPARISON: 03/18/2019 FINDINGS: There are infiltrates in the left lung. These are less pronounced than on the prior study. There is decreased atelectasis in the left lung base. A small to moderate-sized effusion remains. No cardiomegaly. IMPRESSION: Interval improvement Electronically signed by Beka Michelle 03/19/2019 7:43 AM
[2019-03-19] MEDS ORDERED: SOLU-MEDROL IV SCH (08:00)
--- NOTE | 2019-03-19 08:16 | DISCHARGE SUMMARY ---
ADMISSION DATE: 03/10/2019 DISCHARGE DATE: 03/19/2019 HISTORY AND HOSPITAL COURSE: He presented with pneumonia. He has no primary care physician. A 48-year-old gentleman presented to the emergency room, came to ICU in transfer from [place]. Arrived at [place] obtunded, was intubated, respiratory distress, initially on BiPAP, and then had to intubate him. The patient had large left-sided pneumonia, and appeared to have bacteremia and probable sepsis when he came in. Past medical history really unknown and unremarkable from later on from the family. Dr. Farooq was consulted. Chest, abdomen, and pelvic CT done. He had left pneumonia, pleural effusion, right perinephric fluid collection of uncertain significance, minimal free pelvic fluid. Dr. Brown was asked to see for Infectious Disease. He was put on broad- spectrum antibiotics. [place] the left lower lobe pneumonia with effusion, pneumonia seemed to worsen, and bilateral echocardiogram done on 03/14/2019 showed normal left ventricular size, ejection fraction 60%, no significant valvular dysfunction. [place] he had acute hypoxemic respiratory failure due to pneumonia and acute pulmonary edema. He was given some Lasix, and diuresed. Moderate left pleural effusion seemed to slowly improve with diuresis, and felt the pneumonia was secondary to strep pneumonia. He was extubated, and followup chest x-ray this morning showed continued improvement, infiltrates in the left lung less pronounced. He felt much better, he is off his oxygen, and was requesting to go home. His white count interestingly went up to 63,820 on 03/18/2019. Sodium 135, potassium 3.9, BUN 18, creatinine 0.6. His x-ray showed worsening bilateral infiltrates. The patient also had oral candidiasis. He does feel better, but concerning the white count went up, we have changed antibiotics. He is on methylprednisone. I will reduce that. I feel like we ought to watch him a little longer, and continue his present antibiotics. I would like to see radiographic improvement too on his pneumonia, so he will not be discharged today. cc: Boris Villanueva MD
[2019-03-19 08:33] LABS: BASO% 0.2 % (0.0-0.8); HEMATOCRIT 39.1 % (42.0-52.0); HEMOGLOBIN 13.7 g/dL (14.0-18.0); IMM GRAN# 1.36 X1000 (0.0-0.04); IMM GRAN% 2.8 % (0.0-0.5); LYMPH# 1.49 X1000 (1.2-3.4); LYMPH% 3.1 % (20.5-51.1); MCH 29.4 PG (27-31); MCV 83.9 FL (81-99); MONO# 2.23 X1000 (0.11-0.59); MONO% 4.7 % (1.7-9.3); MPV 11.2 FL (7.4-10.4); NEUT% 89.2 % (42.2-75.2); PLT 288 X1000 (130-400); RBC 4.66 XMIL (4.7-6.1); RDW 14.6 % (11.5-14.5); WBC 47.88 X1000 (4.8-10.8)
[2019-03-19 08:52] LABS: BANDS 4 % (0-1); LYMPHS 1 % (21-51); MONO 3 % (1-9); SEGS 92 % (42-75)
[2019-03-19] MEDS: MYCOSTATIN SUSP PO SCH ×4 (09:41→21:59)
[2019-03-19] MEDS: COLACE PO SCH ×2 (09:42→21:59)
[2019-03-19] MEDS: HEPARIN SUBQ SCH ×2 (09:42→21:59)
--- NOTE | 2019-03-19 16:53 | INFECTIOUS DISEASE PROGRESS NO ---
DATE: 03/19/2019 PRESENT ILLNESS: The patient was being treated for pneumococcal pneumoniae. His white blood cell count went up quite a bit and his chest x-ray showed worsening of bilateral infiltrates. The patient also has oral candidiasis and it also appears that he has cold sores which have crusted over around the mouth. MEDICATIONS: Yesterday I switched the patient from Rocephin to a combination of Zyvox and meropenem. Also Dr. Villanueva decreased the amount of steroids that the patient was receiving. The patient is on nystatin for oral candidiasis. As regarding the cold sores the patient has around his mouth, they have all crusted over and therefore they are no longer active and no treatment of them is indicated at this time. PHYSICAL EXAMINATION: Vital Signs: Temperature is 98 degrees, pulse 88, respirations 18, blood pressure 109/54. General: This is an ill-appearing, middle-aged male. He is in no acute distress. The patient is ill appearing but he is better than he was yesterday. 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 The patient also has some white coating on his tongue. Neck: He does not have any neck pain with movement of his head or neck. Lungs: Clear to auscultation. Cardiovascular: Heart rate is regular. Abdomen: Softer and less protuberant than it was yesterday. Neurologic: The patient is awake. He can ambulate. There is no tremor. LAB AND X-RAY: The patient's chest x-ray shows decrease in the patient's left lung infiltrate and atelectasis and there is a stable pleural effusion on the left side. CBC shows the white count is down to 47,880, hemoglobin 13.7, and platelet count 288,000. Blood gases show a pH of 7.48, a PO2 of 130, and a pCO2 of 33. Repeat blood cultures are pending. ASSESSMENT AND PLAN: Patient has bilateral infiltrates which were getting worse but now they are better. My plan would be to continue with the 2 antibiotics I started yesterday, mainly meropenem and vancomycin. Also, I am going to continue with nystatin for the patient's oral candidiasis. 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 Also, the patient's IV steroids have been decreased in amount and that seems to be possibly why the patient's white blood cell count dropped, along with a change in antibiotics. At this time, I am going to continue with the medicines as mentioned above. COMORBIDITIES: I really have not identified any definite disability. I did discover that the patient does have a comorbidity and that is he is a cigarette smoker and to some extent he has chronic obstructive pulmonary disease also. cc: Jacek Brown MD
--- NOTE | 2019-03-19 20:08 | INFECTIOUS DISEASE PROGRESS NO ---
DATE: 03/17/2019 ADDENDUM: The patient also was complaining this morning of left-sided abdominal pain. On the exam, I did not find any abnormality when examining the abdomen. I have gone ahead and ordered a portable x- ray of the patient's abdomen. cc: Jacek Brown MD
--- NOTE | 2019-03-19 20:19 | INFECTIOUS DISEASE PROGRESS NO ---
DATE: 03/17/2019 PRESENT ILLNESS: The patient has a bilateral pneumonia. The left side has been stable. The right side is improved. The patient's tongue looks like it is developing thrush. MEDICATIONS: The patient is receiving Rocephin, this is day #4 of treatment with it. PHYSICAL EXAMINATION: Vital Signs: Temperature is 99, pulse 105, respirations 31, blood pressure 110/69. General: This is a somewhat ill appearing, middle-aged male. He is in no acute distress. Head, eyes, ears, nose, and throat: He can hear my spoken words and see near objects. He does have a white coating on his tongue. Neck: No meningismus. Lungs: Right size was clear. The left side had rales and possibly a rub. Abdomen: Somewhat firm, but was not tender. Cardiovascular: Heart rate is regular. Neurologic: The patient is alert. He can move his extremities. There is no tremor. Integument: No rash. LAB AND X-RAY: Chest x-ray showed that the right lung infiltrate was better. The left lung infiltrate was stable. The patient's CBC showed a white count of 23,050, hemoglobin 15, and platelet count 229,000. Blood gases show a pH of 7.49, a pO2 of 72, and a pCO2 of 40. Creatinine is 0.6. GFR is greater than 60. ASSESSMENT AND PLAN: Regarding the patient's pneumococcal pneumonia, I plan to continue with Rocephin as a single agent. The patient appears to be developing oral candidiasis, namely thrush. My plan to treat the patient's thrush is I am going to order Nystatin 5 mL swish and swallow four times a day. As regarding the patient's leukocytosis, I think it is mainly due to the fact that the patient is on high dose of steroids. COMORBIDITIES: I did not find any definite comorbidity. cc: Jacek Brown MD
[2019-03-20] MEDS: VANCOMYCIN 1,600 MG in NS 250 ML IV SCH (02:33)
[2019-03-20] MEDS: DUONEB (A & A) INH SCH ×2 (03:15→08:11)
[2019-03-20 03:43] LABS: ALLEN TEST YES; BE 4.7 mmoll (-3.0-3.0); BLOOD TYPE ARTERIAL; HCO3-(ACT) 28.4 mmoll (20.0-26.0); METHB 1.3 % (0.0-1.5); O2HB 91.5 % (95.0-99.0); PCO2(98.6) 37 mmHg (35-45); PO2(98.6) 62 mmHg (60-100); SAMPLE BLOOD; SAO2 94.6 % (95.0-100.0); pH(98.6) 7.49 (7.35-7.45)
[2019-03-20 03:44] LABS: MODALITY ROOM AIR
[2019-03-20] MEDS: MERREM 1 GM in NS 50 ML IV SCH (05:31)
[2019-03-20 06:26] LABS: BASO# 0.05 X1000 (0.0-0.2); BASO% 0.2 % (0.0-0.8); EOS# 0.03 X1000 (0.0-0.7); EOS% 0.1 % (0.0-10.0); HEMATOCRIT 41.9 % (42.0-52.0); HEMOGLOBIN 14.2 g/dL (14.0-18.0); IMM GRAN# 0.92 X1000 (0.0-0.04); IMM GRAN% 2.9 % (0.0-0.5); LYMPH# 2.58 X1000 (1.2-3.4); LYMPH% 8.1 % (20.5-51.1); MCH 28.9 PG (27-31); MCHC 33.9 g/dL (33-37); MCV 85.3 FL (81-99); MONO# 2.47 X1000 (0.11-0.59); MONO% 7.8 % (1.7-9.3); MPV 11.5 FL (7.4-10.4); NEUT# 25.73 X1000 (1.4-6.5); NEUT% 80.9 % (42.2-75.2); PLT 329 X1000 (130-400); RBC 4.91 XMIL (4.7-6.1); WBC 31.78 X1000 (4.8-10.8)
[2019-03-20 07:50] LABS: BANDS 6 % (0-1); LYMPHS 6 % (21-51); MONO 4 % (1-9); SEGS 84 % (42-75)
--- NOTE | 2019-03-20 07:57 | Diag Imaging Result Doc PS360 ---
CHEST-2 VIEWS - 03/20/2019 INDICATION: pneumonia COMPARISON: 03/19/2019 FINDINGS: Stable infiltrate and effusion at the left lung base. The right lung remains clear. Heart size remains normal. IMPRESSION: No change from prior. Improved since 03/18/2019. Electronically signed by Messi Gutierrez 03/20/2019 7:54 AM
[2019-03-20 07:59] VITALS: BP 114/66
--- NOTE | 2019-03-20 09:27 | DISCHARGE SUMMARY ---
ADMISSION DATE: 03/10/2019 DISCHARGE DATE: 03/20/2019 PRIMARY CARE PHYSICIAN: He has no primary care physician. REASON FOR ADMISSION: He came in with respiratory failure, pneumonia. HISTORY AND HOSPITAL COURSE: A 48-year-old gentleman presented to ICU 15 and transferred from [facility]. He was came in obtunded. He was in respiratory distress. Initially started BiPAP and they intubated. There was no family member at the time that he came in, and found to have left-sided pneumonia. Cultures grew out pneumococcal pneumonia. He improved, able to extubate and he was on some steroids. We did check an echocardiogram, which showed good left ventricular function and no significant valvular function. I did not see any sign of vegetation. The patient showed steady improvement and felt he could go home. We are going to keep him on a combination of Septra and Levaquin for a couple more weeks. He will follow up with Dr. Brown in his office. His white count had at one time gone up to 63,000. We stopped the steroids and it has come down nicely. DISCHARGE MEDICATIONS: Colace 100 mg b.i.d. We will have him on Septra and Levaquin for a couple of weeks. cc: Boris Villanueva MD
[2019-03-20] MEDS: MYCOSTATIN SUSP PO SCH (10:06)
[2019-03-20] MEDS: COLACE PO SCH (10:06)
[2019-03-20] MEDS: HEPARIN SUBQ SCH (10:09)
--- NOTE | 2019-03-20 17:17 | INFECTIOUS DISEASE PROGRESS NO ---
DATE: 03/20/2019 The patient is being discharged today. He has pneumonia. He is being discharged on a combination of Septra and Levaquin. He initially had a pneumococcal pneumonia but it is felt that he may have had a superimposed infection. The patient will be seen in my office in approximately 2 weeks. The patient was told that if he should get worse than he is now, he should come back to the emergency room. cc: Jacek Brown MD
== END 2019-03-20 11:52 | disposition home or self-care (01) | DRG 871 ==
LOC: DIRADM 16:50 → SUATTDRO 16:50 → ICU 18:28 → 4N 03-17 11:39
PROVIDERS: ATTEND Emergency Medicine
CPT/HCPCS: 31500; 71010; 71020; 71045; 71046; 71270; 74019; 74020; 74178; 80048; 80053; 80101; 80104; 80202; 80301; 80305; 80307; 80320; 80324; 80345; 80346; 80353; 80358; 80361; 80365; 81001; 82055; 82150; 82550; 82553; 82784; 82805; 83690; 83735; 83880; 83992; 84100; 84134; 84443; 84484; 85025; 85027; 85610; 87040; 87070; 87077; 87088; 87186; 87205; 93005; 93010; 93306; 94002; 94003; 94640; 94660; 94761; 94762; 97162; 97530; A9270; C9113; G0431; G0434; G0477; G0479; G0480; G6040; J0330; J0692; J0696; J1644; J1885; J1940; J2020; J2060; J2185; J2250; J2270; J2920; J2930; J3370; J3475; J7030; J7040; J7050; Q9967; S0164